=== PATIENT | male | born 1985 | race Caucasian/White ===

== ENCOUNTER 2016-05-25 19:18 | Emergency (ER) | payer MEDICAID, MEDICARE ==
[2016-05-25] MEDS ORDERED: HYDROmorphone 1 mg/mL 1mL Syr IM STA (19:45)
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
== END 2016-05-25 20:18 | disposition home or self-care (01) ==
LOC: ER 19:18
DX: M54.16 Radiculopathy, lumbar region (principal); F17.200 Nicotine dependence, unspecified, uncomplicated
CPT/HCPCS: Z7502

== ENCOUNTER 2016-06-10 02:30 | Emergency (ER) | payer MEDICAID ==
[2016-06-10] MEDS ORDERED: Dexamethasone Sodium Phos 4 mg/mL Vial IVP STA (02:50)
--- NOTE | 2016-06-10 02:53 | ED Physician Chart ---
Chief Complaint/HPI - Patient Information Date Seen:: 06/10/16 Time Seen:: 02:32 Chief Complaint:: low back pain History of Present Illness:: 30-year-old male, history of low back pain, complains of acute, severe, aching, 10 out of 10, radiating down the right leg, low back pain that started about 3 hours prior to arrival when he says he leaned over to picker tender a dog toy. Denies urinary incontinence or retention, fevers, chest pain, palpitations, abdominal pain, nausea, vomiting. Allergies:: Allergies Allergy/AdvReac Type Severity Reaction Status Date / Time No Known Allergies Allergy Verified 05/25/16 19:38 Vitals:: Vital Signs - 8 hr 06/10/16 02:35 Temp 97.8 F HR 89 RR 19 BP 112/86 O2 Sat % 96 Historian:: Patient Review:: Nurse's Note Reviewed Review of Systems - Review of Systems Other: Complete system review otherwise unremarkable except as noted in history of present illness. Past Medical History - Past Medical History Past Medical History: Other (history of brain tumor, chronic low back pain) Family History: None Social History: Non Smoker, No Alcohol, No Drug Use, Employed Surgical History: other (craniotomy) Psychiatricy History: None Medication: None Family Medical History - Family Member Mother History Unknown: Yes (Mother, PCN allergy. No other congenital illnesses known) Physical Exam - Physical Examination Other:: INITIAL VITAL SIGNS: Reviewed by me GENERAL: Alert and interactive. No acute distress HEAD: Head is normocephalic and atraumatic EYES: EOMI. PERRL. No scleral icterus. No conjunctival injection ENT: Moist mucous membranes. NECK: Supple. No masses. Full range of motion RESPIRATORY: No tachypnea. Clear breath sounds bilaterally. No wheezing, rales, or rhonchi CV: Regular rate and rhythm. No murmurs, rubs, or gallops ABDOMEN: Soft, non-distended, non-tender. No guarding. No rebound. No masses. EXTREMITIES: No deformity. No cyanosis. No edema. SKIN: Warm and dry. No obvious rashes. NEUROLOGIC: Alert and oriented. Face is symmetric. Speech is normal. Moves all extremities equally. Motor and sensory distally intact. ED Septic Shock - . Is Septic Shock (SBP<90, OR Lactate>4 mmol\L) present?: No - <6hrs of presentation: Vital Signs: Vital Signs - 8 hr 06/10/16 02:35 Temp 97.8 F HR 89 RR 19 BP 112/86 O2 Sat % 96 Reassessment (Disposition) - Reassessment Reassessment:: Patient has been researched on the [employer] controlled substance utilization review and evaluation system database and is noted to be receiving large amounts of controlled substance narcotics and benzodiazepines from multiple sources. Appears to also have a chronic pain management physician Dr. Herrera. The personally recognize 3 of the names as different emergency room physicians that have personally worked with a different emergency departments and this emergency department. Patient was also here on May 25, 2016 with similar complaints. I discussed this with him in detail. I recommended that he follow- up with his chronic pain management physician. We ordered x-rays and lumbar spine. However patient is refusing x-rays. Says that he does not need the x- rays. We provided a shot of Toradol and Decadron. Provided prescription for ibuprofen 800 mg. Recommended follow-up with primary care and chronic pain management within one to 2 days. Return to ER precautions given. Patient understands and agrees with the plan. Reassessment Condition:: Improved - Diagnosis Diagnosis:: Acute on chronic low back pain - Aftercare/Follow up Instructions Aftercare/Follow-Up Instructions:: Counseled pt regarding lab results/diagnosis & need follow up, Refer to Discharge Instructions - Patient Disposition Discharge/Transfer:: Home Time:: 03:11 Condition at Disposition:: Improved ED Discharge Plan - Patient Disposition Admit/Discharge/Transfer: PT DISCHARGED HOME Instructions: Chronic Back Pain
[2016-06-10] MEDS ORDERED: Dexamethasone Sodium Phos 4 mg/mL Vial IM STA (02:58)
[2016-06-10] MEDS ORDERED: Dexamethasone Sodium Phos 10 mg/mL PF Vial ONE (03:01)
== END 2016-06-10 03:15 | disposition home or self-care (01) ==
LOC: ER 02:30
DX: M54.5 Low back pain (principal); G89.29 Other chronic pain
CPT/HCPCS: 99284; 96372 ×2; J1885; Z7502

== ENCOUNTER 2017-01-13 22:08 | Emergency (ER) | payer MEDICAID ==
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
== END 2017-01-14 00:55 | disposition left against medical advice (07) ==
LOC: ER 22:08
DX: G89.29 Other chronic pain (principal); M54.5 Low back pain
CPT/HCPCS: Z7502